=== PATIENT | male | born 1940 | race Caucasian/White ===

== ENCOUNTER 2020-11-27 16:36 | Emergency (ER) | payer MEDICARE ==
[2020-11-27 17:43] LABS: HEMOGLOBIN 7.5 gm/dl (14.0-17.5); RED BLOOD COUNT 3.08 M/UL (4.20-5.50); WHITE BLOOD COUNT 3.3 K/UL (4.5-11.0)
[2020-11-27 18:04] LABS: BUN/CREATININE RATIO 17 (0-10)
== END 2020-11-27 23:00 | disposition home or self-care (01) ==
LOC: ER1 16:36
PROVIDERS: Physician Assistant
DX: E11.22 Type 2 diabetes mellitus with diabetic chronic kidney disease (principal); I12.9 Hypertensive chronic kidney disease with stage 1 through stage 4 chronic kidney disease, or unspecified chronic kidney disease; N18.9 Chronic kidney disease, unspecified; D63.1 Anemia in chronic kidney disease; I48.91 Unspecified atrial fibrillation; E78.5 Hyperlipidemia, unspecified; Z79.01 Long term (current) use of anticoagulants; Z88.8 Allergy status to other drugs, medicaments and biological substances
CPT/HCPCS: 36430; 71045; 80053; 81001; 82550; 82553; 82728; 83540; 83550; 83874; 84484; 85025; 86850; 86900; 86901; 86920; 87086; 96365; 99284; J1756; J7050; P9016

== ENCOUNTER → 2020-11-27 | Outpatient (CLI) | payer MEDICARE, OTHER ==
[~2020-11-27] VITALS: Ht 182.9 cm; Wt 96.6 kg
== END ==
LOC: OPSV 09:00
DX: D50.9 Iron deficiency anemia, unspecified (principal)
CPT/HCPCS: 96365; J1756

== ENCOUNTER → 2020-11-30 | Outpatient (CLI) | payer MEDICARE, OTHER | LOC: KOH-I 13:39 | DX: R09.89 Other specified symptoms and signs involving the circulatory and respiratory systems (principal) | CPT/HCPCS: 93880 ==

== ENCOUNTER → 2020-12-01 | Outpatient (CLI) | payer MEDICARE, OTHER ==
[~2020-12-01] VITALS: Ht 182.9 cm; Wt 96.6 kg
== END ==
LOC: OPSV 08:41
DX: D50.9 Iron deficiency anemia, unspecified (principal)
CPT/HCPCS: 96365; J1756

== ENCOUNTER → 2020-12-03 | Outpatient (CLI) | payer MEDICARE, OTHER ==
[~2020-12-03] VITALS: Ht 182.9 cm; Wt 96.6 kg
== END ==
LOC: OPSV 08:22
DX: D50.9 Iron deficiency anemia, unspecified (principal)
CPT/HCPCS: 96365; J1756

== ENCOUNTER → 2020-12-10 | Outpatient (CLI) | payer MEDICARE, OTHER | LOC: OPSV 12-09 09:00 | DX: D50.9 Iron deficiency anemia, unspecified (principal) | CPT/HCPCS: 96365; J1756 ==

== ENCOUNTER → 2020-12-17 | Outpatient (CLI) | payer MEDICARE, OTHER ==
[~2020-12-17] VITALS: Ht 182.9 cm; Wt 96.6 kg
== END ==
LOC: OPSV 10:00
DX: D50.9 Iron deficiency anemia, unspecified (principal)
CPT/HCPCS: 96365; J1756

== ENCOUNTER → 2020-12-28 | Outpatient (CLI) | payer MEDICARE, OTHER | LOC: HEART 5 13:53 | DX: I25.10 Atherosclerotic heart disease of native coronary artery without angina pectoris (principal); I48.0 Paroxysmal atrial fibrillation; I08.1 Rheumatic disorders of both mitral and tricuspid valves | CPT/HCPCS: 93306 ==

== ENCOUNTER → 2021-04-05 | Outpatient (CLI) | payer MEDICARE, OTHER | LOC: US 04-02 13:30 | DX: N13.9 Obstructive and reflux uropathy, unspecified (principal); N40.0 Benign prostatic hyperplasia without lower urinary tract symptoms | CPT/HCPCS: 76857 ==

== ENCOUNTER → 2021-04-20 | Outpatient (CLI) | payer MEDICARE, OTHER | LOC: KOH-I 13:54 | DX: M54.5 Low back pain (principal); M48.061 Spinal stenosis, lumbar region without neurogenic claudication; I70.0 Atherosclerosis of aorta | CPT/HCPCS: 72100 ==

== ENCOUNTER 2021-05-23 21:28 | Emergency (ER) | payer MEDICARE, OTHER ==
[2021-05-23 22:23] LABS: BORDETELLA PARAPERTUSSIS Not Detected (Not Detectd); BORDETELLA PERTUSSIS Not Detected (Not Detectd); CHLAMYDIA PNEUMONIAE Not Detected (Not Detectd); CORONAVIRUS HKU1 Not Detected (Not Detectd); CORONAVIRUS NL63 Not Detected (Not Detectd); CORONAVIRUS OC43 Not Detected (Not Detectd); CORONOAVIRUS 229E Not Detected (Not Detectd); HUMAN METAPNEUMOVIRUS Not Detected (Not Detectd); HUMAN RHINOVIRUS/ENTEROVIRUS Not Detected (Not Detectd); INFLUENZA A Not Detected (Not Detectd); INFLUENZA B Not Detected (Not Detectd); MYCOPLASMA PNEUMONIAE Not Detected (Not Detectd); PARAINFLUENZA VIRUS 1 Not Detected (Not Detectd); PARAINFLUENZA VIRUS 2 Not Detected (Not Detectd); PARAINFLUENZA VIRUS 3 Not Detected (Not Detectd); PARAINFLUENZA VIRUS 4 Not Detected (Not Detectd); RESPIRATORY SYNCYTIAL VIRUS Not Detected (Not Detectd)
[2021-05-23 22:24] LABS: HEMOGLOBIN 13.1 gm/dl (14.0-17.5); RED BLOOD COUNT 4.29 M/UL (4.20-5.50); WHITE BLOOD COUNT 6.5 K/UL (4.5-11.0)
[2021-05-23 23:28] LABS: SARS-CoV-2 NOT DETECTED (Not Detectd)
== END 2021-05-24 01:00 | disposition home or self-care (01) ==
LOC: ER1 21:28
PROVIDERS: Physician Assistant
DX: R52 Pain, unspecified (principal); R68.83 Chills (without fever); Z20.822 Contact with and (suspected) exposure to COVID-19
CPT/HCPCS: 71045; 80053; 85025; 87633; 99283

== ENCOUNTER → 2021-06-01 | Outpatient (CLI) | payer MEDICARE, OTHER | LOC: EMI 09:46 | DX: M54.16 Radiculopathy, lumbar region (principal); R51.9 Headache, unspecified; R90.82 White matter disease, unspecified; M48.061 Spinal stenosis, lumbar region without neurogenic claudication | CPT/HCPCS: 70551; 72148 ==

== ENCOUNTER 2021-06-09 15:56 | Observation (INO) | payer MEDICARE, OTHER ==
[~2021-06-09] VITALS: Ht 182.9 cm; Wt 92.8 kg
[2021-06-09 16:50] LABS: HEMOGLOBIN 13.4 gm/dl (14.0-17.5); RED BLOOD COUNT 4.5 M/UL (4.20-5.50); WHITE BLOOD COUNT 7.7 K/UL (4.5-11.0)
[2021-06-09 17:44] LABS: BUN/CREATININE RATIO 25 (0-10)
[2021-06-09] MEDS ORDERED: ELIQUIS5 MG PO (22:59)
[2021-06-10] MEDS ORDERED: ACTOS45 MG PO (01:36)
[2021-06-10] MEDS ORDERED: ELIQUIS5 MG PO (01:37)
[2021-06-10] MEDS ORDERED: CALCIUM 600 +1 EAC3 PO (01:38)
[2021-06-10] MEDS ORDERED: LOPRESSOR 25 MG25 MG PO (01:38)
[2021-06-10] MEDS ORDERED: RANEXA500 MG PO (01:39)
[2021-06-10] MEDS ORDERED: CETIRIZINE HCL10 M1 PO (01:39)
[2021-06-10] MEDS ORDERED: FLOMAX 0.4 MG0.4 MG PO (01:40)
[2021-06-10] MEDS ORDERED: ASPIRIN CHEWABL81 MG PO (01:43)
[2021-06-10] MEDS ORDERED: ISOSORBIDE MONO30 MG PO (01:44)
[2021-06-10] MEDS ORDERED: AMLODIPINE BESY10 MG PO (01:46)
[2021-06-10] MEDS ORDERED: PROTONIX 40 MG40 M1 PO (01:47)
[2021-06-10] MEDS ORDERED: COMPAZINE5 MG PO (01:48)
[2021-06-10] MEDS ORDERED: NOVOLOG MI100 UNIT/1 SQ ×3 (01:50→02:40)
[2021-06-10] MEDS ORDERED: NOVOLIN 70100 UNIT/2 SQ (01:51)
[2021-06-10] MEDS ORDERED: COQ-10100 MG PO (01:58)
[2021-06-10] MEDS ORDERED: VITAMIN E1000 UNI1 PO (01:59)
[2021-06-10] MEDS ORDERED: VITAMIN D350 MCG PO (02:02)
[2021-06-10] MEDS ORDERED: JARDIANCE10 MG PO (02:04)
[2021-06-10] MEDS ORDERED: CRESTOR10 MG PO (02:05)
[2021-06-10] MEDS ORDERED: ALDACTONE25 MG PO (02:06)
[2021-06-10] MEDS ORDERED: VITAMIN C1000 MG PO (02:07)
[2021-06-10] MEDS ORDERED: ARTHRITIS PAIN650 MG PO (02:09)
[2021-06-10] MEDS ORDERED: LOTRISONE CREAM15 GM TP (02:25)
[2021-06-10] MEDS ORDERED: DOXAZOSIN MESYLA8 MG PO (02:27)
[2021-06-10] MEDS ORDERED: CALCIUM 600 MG1 EAC1 PO (02:30)
[2021-06-10 05:46] LABS: WHITE BLOOD COUNT 5.9 K/UL (4.5-11.0)
[2021-06-10 05:49] LABS: HEMOGLOBIN 11.4 gm/dl (14.0-17.5); RED BLOOD COUNT 3.98 M/UL (4.20-5.50)
[2021-06-10 06:14] LABS: BUN/CREATININE RATIO 26 (0-10)
[2021-06-11 10:38] LABS: HEMOGLOBIN 11.8 gm/dl (14.0-17.5); RED BLOOD COUNT 4.04 M/UL (4.20-5.50); WHITE BLOOD COUNT 4.6 K/UL (4.5-11.0)
== END 2021-06-11 21:12 | disposition home or self-care (01) ==
LOC: ER1 15:56 → CDU 21:25 → PROG CARE 21:25
PROVIDERS: Internal Medicine; Nurse Practitioner; ADMIT Internal Medicine
DX: I63.532 Cerebral infarction due to unspecified occlusion or stenosis of left posterior cerebral artery (principal); I63.512 Cerebral infarction due to unspecified occlusion or stenosis of left middle cerebral artery; H53.9 Unspecified visual disturbance; G93.49 Other encephalopathy; R29.701 NIHSS score 1; I13.10 Hypertensive heart and chronic kidney disease without heart failure, with stage 1 through stage 4 chronic kidney disease, or unspecified chronic kidney disease; E11.22 Type 2 diabetes mellitus with diabetic chronic kidney disease; N18.30 Chronic kidney disease, stage 3 unspecified; I48.20 Chronic atrial fibrillation, unspecified; K21.9 Gastro-esophageal reflux disease without esophagitis; E78.5 Hyperlipidemia, unspecified; E87.1 Hypo-osmolality and hyponatremia; I25.10 Atherosclerotic heart disease of native coronary artery without angina pectoris; Z20.822 Contact with and (suspected) exposure to COVID-19; Z86.73 Personal history of transient ischemic attack (TIA), and cerebral infarction without residual deficits; Z95.5 Presence of coronary angioplasty implant and graft; Z90.49 Acquired absence of other specified parts of digestive tract; Z87.891 Personal history of nicotine dependence; Z79.01 Long term (current) use of anticoagulants; Z79.4 Long term (current) use of insulin; Z79.899 Other long term (current) drug therapy; Z88.8 Allergy status to other drugs, medicaments and biological substances
CPT/HCPCS: ECHO; 36415; 70450; 70544; 70551; 80053; 80061; 81001; 82140; 82550; 82553; 82607; 82746; 82962; 83036; 83605; 83735; 83874; 83880; 84100; 84439; 84443; 84484; 85025; 85610; 85652; 92610; 93005; 93306; 93880; 97110-GP-CQ; 97116-GP-CQ; 97162; 97165; 97535; 99285; G0378; J7030; U0002

== ENCOUNTER 2021-07-19 13:36 | Inpatient (IN) | payer MEDICARE, OTHER ==
[~2021-07-19] VITALS: Ht 182.9 cm; Wt 95.3 kg
[~2021-07-19 13:36] MED LIST: ACTOS45 MG PO; ALDACTONE25 MG PO; AMLODIPINE BESY10 MG PO; ARTHRITIS PAIN650 MG PO; ASPIRIN CHEWABL81 MG PO; CALCIUM 600 +1 EAC3 PO; CALCIUM 600 MG1 EAC1 PO; CETIRIZINE HCL10 M1 PO; COMPAZINE5 MG PO; COQ-10100 MG PO; CRESTOR10 MG PO; DOXAZOSIN MESYLA8 MG PO; ELIQUIS5 MG PO; FLOMAX 0.4 MG0.4 MG PO; ISOSORBIDE MONO30 MG PO; JARDIANCE10 MG PO; LOPRESSOR 25 MG25 MG PO; LOTRISONE CREAM15 GM TP; NOVOLIN 70100 UNIT/2 SQ; NOVOLOG MI100 UNIT/1 SQ; PROTONIX 40 MG40 M1 PO; RANEXA500 MG PO; VITAMIN C1000 MG PO; VITAMIN D350 MCG PO; VITAMIN E1000 UNI1 PO
[2021-07-19 14:31] LABS: HEMOGLOBIN 7.6 gm/dl (14.0-17.5); RED BLOOD COUNT 2.94 M/UL (4.20-5.50); WHITE BLOOD COUNT 5.1 K/UL (4.5-11.0)
[2021-07-19 15:16] LABS: BUN/CREATININE RATIO 17 (0-10)
[2021-07-19] MEDS ORDERED: ELIQUIS5 MG PO (18:44)
[2021-07-19] MEDS ORDERED: CETIRIZINE HCL10 MG PO (18:44)
[2021-07-19] MEDS ORDERED: JARDIANCE25 MG PO (18:44)
[2021-07-19] MEDS ORDERED: ISOSORBIDE MONO30 MG PO (18:44)
[2021-07-19] MEDS ORDERED: METOPROLOL TART25 MG PO (18:45)
[2021-07-19] MEDS ORDERED: FLOMAX 0.4 MG0.4 MG PO (18:45)
[2021-07-19] MEDS ORDERED: RANEXA500 MG PO (18:45)
[2021-07-19] MEDS ORDERED: ACTOS45 MG PO (18:45)
[2021-07-19] MEDS ORDERED: SPIRONOLACTONE25 MG PO (18:46)
[2021-07-19] MEDS ORDERED: AMLODIPINE BESY10 MG PO (18:46)
[2021-07-19] MEDS ORDERED: CRESTOR 10 MG T10 MG PO (18:46)
[2021-07-19] MEDS ORDERED: CLOTRIMAZOLE-BE30 ML TP (18:47)
[2021-07-19] MEDS ORDERED: COMPAZINE5 MG PO (18:48)
[2021-07-19] MEDS ORDERED: CALCIUM 600 +1 EAC3 PO (18:48)
[2021-07-19] MEDS ORDERED: ASPIRIN EC81 MG PO (18:48)
[2021-07-19] MEDS ORDERED: NOVOLOG MI100 UNIT/1 SC (18:50)
[2021-07-19] MEDS ORDERED: NOVOLOG MI100 UNIT/1 SQ (18:51)
[2021-07-19] MEDS ORDERED: CO Q-10200 MG PO (18:52)
[2021-07-19] MEDS ORDERED: VITAMIN D350 MC3 PO (18:53)
[2021-07-19] MEDS ORDERED: VITAMIN E1000 UNI1 PO (18:53)
[2021-07-19] MEDS ORDERED: [UNRECOGNIZED DRUG - OTHER] PO (18:54)
[2021-07-19] MEDS ORDERED: MULTIVITAMIN1 EACH PO (18:54)
[2021-07-19] MEDS ORDERED: VITAMIN C1000 MG PO (18:55)
[2021-07-19] MEDS ORDERED: TYLENOL 8 HOUR650 MG PO (18:55)
[2021-07-19 23:13] LABS: HEMOGLOBIN 7.5 gm/dl (14.0-17.5)
[2021-07-20 07:35] LABS: WHITE BLOOD COUNT 4.8 K/UL (4.5-11.0)
[2021-07-20 07:43] LABS: RED BLOOD COUNT 3.91 M/UL (4.20-5.50)
[2021-07-20 11:03] LABS: HEMOGLOBIN 9.5 gm/dl (14.0-17.5)
[2021-07-20 17:08] LABS: HEMOGLOBIN 10.2 gm/dl (14.0-17.5)
[2021-07-20] MEDS ORDERED: PROTONIX 40 MG40 M1 PO (18:13)
[2021-07-20] MEDS ORDERED: CARAFATE1 GM PO (18:13)
== END 2021-07-20 19:35 | disposition home or self-care (01) | DRG 378 ==
LOC: ER1 13:36 → M/S 18:56 → CDU 18:56 → M/S 22:17
PROVIDERS: Physician Assistant; ADMIT Internal Medicine
PROC: 30233N1 Transfusion of Nonautologous Red Blood Cells into Peripheral Vein, Percutaneous Approach (ICD-10-PCS; principal; 2021-07-19)
DX: K92.2 Gastrointestinal hemorrhage, unspecified (principal); D62 Acute posthemorrhagic anemia; Z20.822 Contact with and (suspected) exposure to COVID-19; I48.0 Paroxysmal atrial fibrillation; K44.9 Diaphragmatic hernia without obstruction or gangrene; E11.9 Type 2 diabetes mellitus without complications; I45.10 Unspecified right bundle-branch block; I10 Essential (primary) hypertension; E78.5 Hyperlipidemia, unspecified; I25.10 Atherosclerotic heart disease of native coronary artery without angina pectoris; Z79.01 Long term (current) use of anticoagulants; Z86.73 Personal history of transient ischemic attack (TIA), and cerebral infarction without residual deficits; Z95.5 Presence of coronary angioplasty implant and graft; Z79.82 Long term (current) use of aspirin; Z79.4 Long term (current) use of insulin; Z79.899 Other long term (current) drug therapy; Z90.49 Acquired absence of other specified parts of digestive tract; Z88.8 Allergy status to other drugs, medicaments and biological substances; Z82.49 Family history of ischemic heart disease and other diseases of the circulatory system; Z83.3 Family history of diabetes mellitus
CPT/HCPCS: 36415; 71045; 80048; 80053; 82270; 82550; 82553; 82962; 83874; 84484; 85014; 85018; 85025; 86850; 86900; 86901; 86920; 93005; 99284; C9113; J7050; P9016; U0002

== ENCOUNTER → 2021-09-13 | Outpatient (CLI) | payer MEDICARE, OTHER ==
[~2021-09-13] MED LIST changes: +ASPIRIN EC81 MG PO; +CARAFATE1 GM PO; +CETIRIZINE HCL10 MG PO; +CLOTRIMAZOLE-BE30 ML TP; +CO Q-10200 MG PO; +CRESTOR 10 MG T10 MG PO; +JARDIANCE25 MG PO; +METOPROLOL TART25 MG PO; +MULTIVITAMIN1 EACH PO; +NOVOLOG MI100 UNIT/1 SC; +SPIRONOLACTONE25 MG PO; +TYLENOL 8 HOUR650 MG PO; +VITAMIN D350 MC3 PO; +[UNRECOGNIZED DRUG - OTHER] PO
[2021-09-13 13:13] LABS: RED BLOOD COUNT 3.7 M/UL (4.20-5.50); WHITE BLOOD COUNT 4.2 K/UL (4.5-11.0)
== END ==
LOC: LAB 12:46
PROVIDERS: Nurse Practitioner Family
DX: D64.9 Anemia, unspecified (principal)
CPT/HCPCS: 36415; 85025

== ENCOUNTER 2021-10-28 20:42 | Emergency (ER) | payer MEDICARE, OTHER ==
[~2021-10-28 20:42] MED LIST changes: -NORFLEX 100 MG100 MG PO
[2021-10-28 23:05] LABS: HEMOGLOBIN 10.3 gm/dl (14.0-17.5); RED BLOOD COUNT 4.27 M/UL (4.20-5.50); WHITE BLOOD COUNT 5.1 K/UL (4.5-11.0)
[2021-10-30] MEDS ORDERED: NORFLEX 100 MG100 MG PO (20:32)
== END 2021-10-29 00:25 | disposition home or self-care (01) ==
LOC: ER1 20:42
PROVIDERS: Family Medicine
DX: M54.2 Cervicalgia (principal); R55 Syncope and collapse; Z88.8 Allergy status to other drugs, medicaments and biological substances; W19.XXXA Unspecified fall, initial encounter
CPT/HCPCS: 70450; 72125; 80053; 82550; 82553; 84484; 85025; 93005; 99284

== ENCOUNTER → 2021-10-28 | Outpatient (CLI) | payer MEDICARE, OTHER ==
[~2021-10-28] MED LIST changes: +NORFLEX 100 MG100 MG PO
== END ==
LOC: KOH-I 13:12
DX: I73.9 Peripheral vascular disease, unspecified (principal)
CPT/HCPCS: 93922; 93925

== ENCOUNTER 2021-10-30 18:00 | Emergency (ER) | payer MEDICARE, OTHER ==
[2021-10-30] MEDS ORDERED: NORFLEX 100 MG100 MG PO (20:32)
== END 2021-10-30 20:55 | disposition home or self-care (01) ==
LOC: ER1 18:00
DX: S16.1XXA Strain of muscle, fascia and tendon at neck level, initial encounter (principal); I11.9 Hypertensive heart disease without heart failure; E11.9 Type 2 diabetes mellitus without complications; Z88.8 Allergy status to other drugs, medicaments and biological substances; W19.XXXA Unspecified fall, initial encounter
CPT/HCPCS: 70490; 96374; 99283; J2360

== ENCOUNTER 2021-11-03 16:55 | Inpatient (IN) | payer MEDICARE, OTHER ==
[~2021-11-03] VITALS: Ht 182.9 cm; Wt 95.3 kg
[~2021-11-03 16:55] MED LIST changes: +NORFLEX 100 MG100 MG PO
[2021-11-03 17:42] LABS: HEMOGLOBIN 10.2 gm/dl (14.0-17.5); RED BLOOD COUNT 4.25 M/UL (4.20-5.50)
[2021-11-04 06:49] LABS: HEMOGLOBIN 9.4 gm/dl (14.0-17.5); RED BLOOD COUNT 3.86 M/UL (4.20-5.50); WHITE BLOOD COUNT 4.5 K/UL (4.5-11.0)
[2021-11-05] MEDS ORDERED: CLOPIDOGREL75 MG PO (11:24)
[2021-11-05] MEDS ORDERED: METOPROLOL TART25 MG PO (11:24)
== END 2021-11-05 13:58 | disposition home or self-care (01) | DRG 309 ==
LOC: ER1 16:55 → PROG CARE 20:36 → CDU 20:36 → PROG CARE 11-04 06:05
PROVIDERS: Emergency Medicine; Internal Medicine; ADMIT Internal Medicine
PROC: B24BZZZ Ultrasonography of Heart with Aorta (ICD-10-PCS; principal; 2021-11-05)
DX: I48.0 Paroxysmal atrial fibrillation (principal); I13.0 Hypertensive heart and chronic kidney disease with heart failure and stage 1 through stage 4 chronic kidney disease, or unspecified chronic kidney disease; I50.32 Chronic diastolic (congestive) heart failure; Z20.822 Contact with and (suspected) exposure to COVID-19; E11.40 Type 2 diabetes mellitus with diabetic neuropathy, unspecified; K21.9 Gastro-esophageal reflux disease without esophagitis; E78.5 Hyperlipidemia, unspecified; D63.1 Anemia in chronic kidney disease; R79.89 Other specified abnormal findings of blood chemistry; I08.3 Combined rheumatic disorders of mitral, aortic and tricuspid valves; I48.20 Chronic atrial fibrillation, unspecified; E66.9 Obesity, unspecified; E11.22 Type 2 diabetes mellitus with diabetic chronic kidney disease; I47.1 Supraventricular tachycardia; N18.30 Chronic kidney disease, stage 3 unspecified; I25.10 Atherosclerotic heart disease of native coronary artery without angina pectoris; Z95.5 Presence of coronary angioplasty implant and graft; Z86.73 Personal history of transient ischemic attack (TIA), and cerebral infarction without residual deficits; Z79.01 Long term (current) use of anticoagulants; Z79.82 Long term (current) use of aspirin; Z79.4 Long term (current) use of insulin; Z90.49 Acquired absence of other specified parts of digestive tract; Z98.890 Other specified postprocedural states; Z82.49 Family history of ischemic heart disease and other diseases of the circulatory system; Z82.3 Family history of stroke; Z87.891 Personal history of nicotine dependence; Z88.8 Allergy status to other drugs, medicaments and biological substances
CPT/HCPCS: 36415; 71045; 80048; 80053; 80061; 80307; 81001; 82550; 82553; 82962; 83036; 83605; 83735; 83880; 84100; 84439; 84443; 84484; 84550; 85025; 85610; 85730; 86140; 87040; 93005; 96374; 96375; 96376; 99285; G0378; J1160; J1650; J7040; U0002

== ENCOUNTER → 2021-12-03 | Outpatient (CLI) | payer MEDICARE, OTHER ==
[~2021-12-03] MED LIST changes: +CLOPIDOGREL75 MG PO
[2021-12-05 06:42] LABS: CREATININE, URINE 142.9 mg/dL (Not Estab.)
== END ==
LOC: LAB 15:21
PROVIDERS: Internal Medicine Nephrology
DX: N18.32 Chronic kidney disease, stage 3b (principal)
CPT/HCPCS: 36415; 80053; 82043; 82570; 84156

== ENCOUNTER 2021-12-22 23:54 | Inpatient (IN) | payer MEDICARE, OTHER ==
[~2021-12-22] VITALS: Ht 182.9 cm; Wt 95.0 kg
[~2021-12-22 23:54] MED LIST changes: -NOVOLOG MI100 UNIT/1 SC; +RANEXA1000 MG PO
[2021-12-23 00:38] LABS: HEMOGLOBIN 9.6 gm/dl (14.0-17.5); WHITE BLOOD COUNT 6.3 K/UL (4.5-11.0)
[2021-12-23] MEDS ORDERED: ELIQUIS5 MG PO (05:52)
[2021-12-23] MEDS ORDERED: ACTOS45 MG PO (05:52)
[2021-12-23] MEDS ORDERED: CLOPIDOGREL75 MG PO (10:44)
[2021-12-23] MEDS ORDERED: PROTONIX 40 MG40 M1 PO (10:46)
[2021-12-23] MEDS ORDERED: METOPROLOL TART25 MG PO (10:46)
[2021-12-23] MEDS ORDERED: CYANOCOBAL1000 MCG/1 INJ (10:49)
--- NOTE | 2021-12-24 00:03 | NUR ---
TELE CALLED TO INFORM ME OF A PAUSE BUT DIDN'T SAY IT HAPPENED ON DAYSHIFT. MD WAS NOTIFIED THAT IT HAPPENED TONIGHT. GAVE ORDERES TO D/C LOPRESSOR. WHEN FINDING OUT IT DIDN'T HAPPEN TONIGHT, WAS CALLED BACK AND SHE GAVE ORDERS TO RESTART LOPRESSOR.
[2021-12-24 02:05] LABS: RED BLOOD COUNT 3.81 M/UL (4.20-5.50); WHITE BLOOD COUNT 7.3 K/UL (4.5-11.0)
[2021-12-24] MEDS ORDERED: LOPRESSOR 25 MG25 MG PO (09:37)
[2021-12-24] MEDS ORDERED: AMIODARONE HCL400 MG PO (09:40)
[2021-12-24] MEDS ORDERED: PACERONE200 MG PO (09:46)
[2021-12-24] MEDS ORDERED: AUGMENTIN 500-1 EACH PO (09:46)
[2021-12-24] MEDS ORDERED: FEOSOL325 MG PO (09:46)
== END 2021-12-24 10:26 | disposition home or self-care (01) | DRG 309 ==
LOC: ER1 23:54 → CDU 12-23 01:39 → PROG CARE 12-23 01:39
PROVIDERS: Family Medicine; Internal Medicine; ADMIT Internal Medicine
DX: I48.0 Paroxysmal atrial fibrillation (principal); I13.0 Hypertensive heart and chronic kidney disease with heart failure and stage 1 through stage 4 chronic kidney disease, or unspecified chronic kidney disease; I50.32 Chronic diastolic (congestive) heart failure; N18.30 Chronic kidney disease, stage 3 unspecified; E11.22 Type 2 diabetes mellitus with diabetic chronic kidney disease; I25.10 Atherosclerotic heart disease of native coronary artery without angina pectoris; H91.90 Unspecified hearing loss, unspecified ear; D53.9 Nutritional anemia, unspecified; E78.5 Hyperlipidemia, unspecified; E11.40 Type 2 diabetes mellitus with diabetic neuropathy, unspecified; I45.10 Unspecified right bundle-branch block; Z20.822 Contact with and (suspected) exposure to COVID-19; K21.9 Gastro-esophageal reflux disease without esophagitis; I35.0 Nonrheumatic aortic (valve) stenosis; I49.3 Ventricular premature depolarization; Z95.1 Presence of aortocoronary bypass graft; Z79.899 Other long term (current) drug therapy; Z86.73 Personal history of transient ischemic attack (TIA), and cerebral infarction without residual deficits; Z90.49 Acquired absence of other specified parts of digestive tract; Z90.89 Acquired absence of other organs; Z98.890 Other specified postprocedural states; Z88.8 Allergy status to other drugs, medicaments and biological substances; Z82.49 Family history of ischemic heart disease and other diseases of the circulatory system; Z79.4 Long term (current) use of insulin; Z79.82 Long term (current) use of aspirin; Z87.891 Personal history of nicotine dependence; Z82.3 Family history of stroke
CPT/HCPCS: 71045; 80048; 80053; 82550; 82553; 82962; 83540; 83550; 84484; 85025; 93005; 96374; 99285; J1650; J1756

== ENCOUNTER 2022-04-22 14:49 | Emergency (ER) | payer MEDICARE, OTHER ==
[~2022-04-22 14:49] MED LIST changes: +AMIODARONE HCL400 MG PO; +AUGMENTIN 500-1 EACH PO; +CYANOCOBAL1000 MCG/1 INJ; +FEOSOL325 MG PO; +PACERONE200 MG PO
[2022-04-22] MEDS ORDERED: DOXYCYCLINE HY100 MG PO (15:44)
== END 2022-04-22 16:15 | disposition home or self-care (01) ==
LOC: ER1 14:49
DX: R21 Rash and other nonspecific skin eruption (principal); J06.9 Acute upper respiratory infection, unspecified; E11.9 Type 2 diabetes mellitus without complications; I10 Essential (primary) hypertension; I25.10 Atherosclerotic heart disease of native coronary artery without angina pectoris; E78.5 Hyperlipidemia, unspecified; Z95.5 Presence of coronary angioplasty implant and graft
CPT/HCPCS: 99283